=== PATIENT | female | born 1980 | race African-American/Black ===

== ENCOUNTER 2023-11-26 07:30 | Emergency (ER) | payer OTHER ==
[~2023-11-26] VITALS: Ht 157.5 cm; Wt 106.6 kg
[2023-11-26 07:59] VITALS: TEMP 99.4
[2023-11-26 08:13] LABS: BASOPHILS # (AUTO) 0.1 (0.0-0.1); BASOPHILS % 0.9 % (0.0-1.0); EOSINOPHILS # (AUTO) 0.1 (0.0-0.4); EOSINOPHILS % 1.6 % (0.0-6.0); HEMATOCRIT 36.5 % (34.2-44.1); HEMOGLOBIN 11.4 g/dL (12.0-16.0); LYMPHOCYTES # (AUTO) 1.7 (1.0-3.2); LYMPHOCYTES % 30.9 % (18.0-39.1); MEAN CORPUSCULAR HEMOGLOBIN 22.9 pg (28-32); MEAN CORPUSCULAR HGB CONC 31.2 g/dL (31-35); MEAN CORPUSCULAR VOLUME 73.3 fL (81-99); MONOCYTES # (AUTO) 0.5 (0.2-0.8); MONOCYTES % 9.2 % (4.4-11.3); NEUTROPHILS # (AUTO) 3.2 (2.1-6.9); PLATELET COUNT 285 x10e3/uL (140-360); RED BLOOD COUNT 4.98 x10e6/uL (3.6-5.1); RED CELL DISTRIBUTION WIDTH 15.1 % (11.7-14.4); WHITE BLOOD COUNT 5.57 x10e3/uL (4.8-10.8)
[2023-11-26 08:23] LABS: INR 0.94; PARTIAL THROMBOPLASTIN TIME 32.5 seconds (23.8-35.5)
[2023-11-26 08:31] LABS: ALANINE AMINOTRANSFERASE 13 IU/L (0-55); ALBUMIN 3.7 g/dL (3.5-5.0); ALBUMIN/GLOBULIN RATIO 0.9 (0.8-2.0); ALKALINE PHOSPHATASE 62 IU/L (40-150); BILIRUBIN,TOTAL 0.8 mg/dL (0.2-1.2); BLOOD UREA NITROGEN 7 mg/dL (7-26); BUN/CREATININE RATIO 9 (6-25); CALCIUM 9.8 mg/dL (8.4-10.2); CARBON DIOXIDE 24 mmol/L (22-29); CHLORIDE 77 mmol/L (98-107); CREATINE KINASE 90 IU/L (29-168); CREATININE, SERUM 0.77 mg/dL (0.57-1.11); EST GLOMERULAR FILTRATION RATE 98 ML/MIN (>=60); GLUCOSE 136 mg/dL (74-118); MAGNESIUM 1.7 MG/DL (1.3-2.1); SODIUM 137 mmol/L (136-145); TOTAL PROTEIN 7.8 g/dL (6.5-8.1)
[2023-11-26] MEDS: SODIUM CHLORIDE 0.9% 1000ML 1,000 ML IV STA (08:58)
[2023-11-26 09:07] LABS: TROPONIN I < 0.001 ng/mL (0-0.300)
[2023-11-26 09:45] VITALS: PULSE 72; RESP 16; O2SAT 100
== END 2023-11-26 10:30 | disposition home or self-care (01) ==
LOC: ER 07:39
DX: R20.0 Anesthesia of skin (principal); R20.2 Paresthesia of skin; R50.9 Fever, unspecified; I10 Essential (primary) hypertension
CPT/HCPCS: 36415; 70450; 71045; 80053; 82550; 83735; 84443; 84484; 85025; 85610; 85730; 93005; 99284; J7030